=== PATIENT | male | born 1985 | race African-American/Black ===

== ENCOUNTER 2022-04-28 13:21 | Emergency (ER) | payer OTHER ==
[~2022-04-28] VITALS: Ht 182.9 cm; Wt 86.0 kg
[2022-04-28 13:41] VITALS: BP 130/73
[2022-04-28] MEDS ORDERED: CLINDAMYCIN HCL 150MG CAPSULE PO ONE (16:45)
[2022-04-28] MEDS ORDERED: CLIN-194 MT (16:56)
== END 2022-04-28 17:28 | disposition home or self-care (01) ==
LOC: ER 13:21
DX: L02.415 Cutaneous abscess of right lower limb (principal); F12.10 Cannabis abuse, uncomplicated
CPT/HCPCS: 99283